=== PATIENT | male | born 1985 ===

== ENCOUNTER 2020-07-04 17:37 | Outpatient (REF) | payer OTHER, SELFPAY ==
[2020-07-04 21:30] LABS: HCT 43.6 % (40.0-50.0); HGB 14.7 g/dL (13.5-17.5); MCH 29.6 pg (27.0-33.0); MCHC 33.7 % (32.0-36.0); MCV 87.9 fL (80-95); MPV 11.4 fL (8.0-11.0); Platelet Count 155 10^3/uL (130-400); RBC 4.96 10^6/uL (4.36-5.78); RDW 12.1 % (11.8-14.1); RDW-SD 38.9 fL
[2020-07-04 21:41] LABS: Vitamin B12 255 pg/mL (193-986)
== END 2020-07-04 17:38 | disposition home or self-care (01) ==
LOC: NCHCN 17:37
PROVIDERS: Visit Provider Registered Nurse
DX: R20.2 Paresthesia of skin (principal); K14.9 Disease of tongue, unspecified
CPT/HCPCS: 85027; 82607